=== PATIENT | female | born 1985 | race Caucasian/White ===

== ENCOUNTER 2019-08-17 20:20 | Day surgery (SDC) | payer OTHER ==
[2019-08-17] MEDS ORDERED: Ketorolac 30 MG/ML SDV IVPUSH ONE (20:35)
[2019-08-17] MEDS ORDERED: Sodium Chloride 0.9% 1,000 ML IV ONE (20:35)
[2019-08-17] MEDS ORDERED: Morphine 2 MG/ML Syringe IVPUSH ONE (20:39)
[2019-08-17] MEDS ORDERED: Ondansetron 4 MG/2 ML SDV IVPUSH ONE (20:51)
--- NOTE | 2019-08-17 20:51 | EDM.PDOC ---
<AnastasiyaCherelle - Last Filed: 08/18/19 02:36> ED HPI GENERAL MEDICAL PROBLEM - General Chief Complaint: Abdominal Pain Stated Complaint: RT ABD PAIN Time Seen by Provider: 08/17/19 20:22 - Related Data Allergies Allergy/AdvReac Type Severity Reaction Status Date / Time prochlorperazine Allergy Severe Other Verified 08/18/19 01:43 [From Compazine] Sulfa (Sulfonamide Allergy Rash Verified 08/18/19 01:43 Antibiotics) sulfamethoxazole Allergy Rash Verified 08/18/19 01:43 [From Bactrim] trimethoprim [From Bactrim] Allergy Rash Verified 08/18/19 01:43 Home Meds: Home Meds Cetirizine [ZyrTEC] 1 dose PO DAILY 08/17/19 [History] ED ROS GENERAL - Review of Systems Review Of Systems: See Below (see dictation) ED EXAM, GI/ABD - Physical Exam Exam: See Below (see dictation) Course - Vital Signs Text/Narrative:: Pt signed out to myself from Skylar Ortiz NP pending CT. CT demonstrating acute appendicitis. Dr. Beckford, surgeon, contacted and will admit. He is in the ED seeing patient. Last Recorded V/S: Last Vital Signs Temp 98.2 F 08/18/19 09:00 Pulse 71 08/18/19 09:00 Resp 14 08/18/19 09:00 BP 105/74 08/18/19 09:00 Pulse Ox 94 L 08/18/19 09:00 - Orders/Labs/Meds Labs: Laboratory Tests 08/17/19 08/17/19 08/17/19 Range/Units 20:34 20:34 20:55 WBC 9.45 (4.0-11.0) K/uL RBC 4.71 (4.30-5.90) M/uL Hgb 14.7 (12.0-16.0) g/dL Hct 42.5 (36.0-46.0) % MCV 90.2 (80.0-98.0) fL MCH 31.2 (27.0-32.0) pg MCHC 34.6 (31.0-37.0) g/dL RDW Std Deviation 42.0 (28.0-62.0) fl RDW Coeff of Kathi 13 (11.0-15.0) % Plt Count 187 (150-400) K/uL MPV 10.60 (7.40-12.00) fL Neut % (Auto) 67.2 (48.0-80.0) % Lymph % (Auto) 19.9 (16.0-40.0) % George % (Auto) 9.2 (0.0-15.0) % Eos % (Auto) 3.5 (0.0-7.0) % Baso % (Auto) 0.2 (0.0-1.5) % Neut # (Auto) 6.4 H (1.4-5.7) K/uL Lymph # (Auto) 1.9 (0.6-2.4) K/uL George # (Auto) 0.9 H (0.0-0.8) K/uL Eos # (Auto) 0.3 (0.0-0.7) K/uL Baso # (Auto) 0.0 (0.0-0.1) K/uL Nucleated RBC % 0.0 /100WBC Nucleated RBCs # 0 K/uL Sodium (136-145) mmol/L Potassium (3.5-5.1) mmol/L Chloride (98-107) mmol/L Carbon Dioxide (21.0-32.0) mmol/L BUN (7.0-18.0) mg/dL Creatinine (0.6-1.0) mg/dL Est Cr Clr Drug Dosing mL/min Estimated GFR (MDRD) ml/min Glucose (74-106) mg/dL Calcium (8.5-10.1) mg/dL Total Bilirubin (0.2-1.0) mg/dL AST (15-37) IU/L ALT (14-63) IU/L Alkaline Phosphatase (46-116) U/L Total Protein (6.4-8.2) g/dL Albumin (3.4-5.0) g/dL Globulin (2.6-4.0) g/dL Albumin/Globulin Ratio (0.9-1.6) Urine Color YELLOW Urine Appearance CLEAR Urine pH 5.5 (5.0-8.0) Ur Specific Yantis <= 1.005 (1.001-1.035) Urine Protein NEGATIVE (NEGATIVE) mg/dL Urine Glucose (UA) NEGATIVE (NEGATIVE) mg/dL Urine Ketones NEGATIVE (NEGATIVE) mg/dL Urine Occult Blood NEGATIVE (NEGATIVE) Urine Nitrite NEGATIVE (NEGATIVE) Urine Bilirubin NEGATIVE (NEGATIVE) Urine Urobilinogen 0.2 (<2.0) EU/dL Ur Leukocyte Esterase TRACE H (NEGATIVE) Urine RBC 0-1 (0-2/HPF) Urine WBC 0-3 (0-5/HPF) Ur Epithelial Cells FEW (NONE-FEW) Urine Bacteria 1+ H (NEGATIVE) Urine HCG, Qual NEGATIVE (NEGATIVE) 08/17/19 Range/Units 20:55 WBC (4.0-11.0) K/uL RBC (4.30-5.90) M/uL Hgb (12.0-16.0) g/dL Hct (36.0-46.0) % MCV (80.0-98.0) fL MCH (27.0-32.0) pg MCHC (31.0-37.0) g/dL RDW Std Deviation (28.0-62.0) fl RDW Coeff of Kathi (11.0-15.0) % Plt Count (150-400) K/uL MPV (7.40-12.00) fL Neut % (Auto) (48.0-80.0) % Lymph % (Auto) (16.0-40.0) % George % (Auto) (0.0-15.0) % Eos % (Auto) (0.0-7.0) % Baso % (Auto) (0.0-1.5) % Neut # (Auto) (1.4-5.7) K/uL Lymph # (Auto) (0.6-2.4) K/uL George # (Auto) (0.0-0.8) K/uL Eos # (Auto) (0.0-0.7) K/uL Baso # (Auto) (0.0-0.1) K/uL Nucleated RBC % /100WBC Nucleated RBCs # K/uL Sodium 142 (136-145) mmol/L Potassium 3.5 (3.5-5.1) mmol/L Chloride 105 (98-107) mmol/L Carbon Dioxide 25.0 (21.0-32.0) mmol/L BUN 12 (7.0-18.0) mg/dL Creatinine 1.0 (0.6-1.0) mg/dL Est Cr Clr Drug Dosing 77.08 mL/min Estimated GFR (MDRD) > 60.0 ml/min Glucose 125 H (74-106) mg/dL Calcium 8.9 (8.5-10.1) mg/dL Total Bilirubin 0.6 (0.2-1.0) mg/dL AST 12 L (15-37) IU/L ALT 20 (14-63) IU/L Alkaline Phosphatase 72 (46-116) U/L Total Protein 7.4 (6.4-8.2) g/dL Albumin 3.9 (3.4-5.0) g/dL Globulin 3.5 (2.6-4.0) g/dL Albumin/Globulin Ratio 1.1 (0.9-1.6) Urine Color Urine Appearance Urine pH (5.0-8.0) Ur Specific Yantis (1.001-1.035) Urine Protein (NEGATIVE) mg/dL Urine Glucose (UA) (NEGATIVE) mg/dL Urine Ketones (NEGATIVE) mg/dL Urine Occult Blood (NEGATIVE) Urine Nitrite (NEGATIVE) Urine Bilirubin (NEGATIVE) Urine Urobilinogen (<2.0) EU/dL Ur Leukocyte Esterase (NEGATIVE) Urine RBC (0-2/HPF) Urine WBC (0-5/HPF) Ur Epithelial Cells (NONE-FEW) Urine Bacteria (NEGATIVE) Urine HCG, Qual (NEGATIVE) Meds: Medications Discontinued Medications Generic Name Dose Route Start Last Admin Trade Name Simonq PRN Reason Stop Dose Admin Bupivacaine HCl Confirm 08/17/19 23:52 Marcaine 0.5% Administered 08/17/19 23:53 Dose 30 ml .ROUTE .STK-MED ONE Cefoxitin Sodium Confirm 08/17/19 23:40 Mefoxin Administered 08/17/19 23:41 Dose 1 gm .ROUTE .STK-MED ONE Cefoxitin Sodium Confirm 08/17/19 23:40 Mefoxin Administered 08/17/19 23:41 Dose 1 gm .ROUTE .STK-MED ONE Dexamethasone Confirm 08/17/19 23:28 Dexamethasone Administered 08/17/19 23:29 Dose 20 mg .ROUTE .STK-MED ONE Fentanyl Confirm 08/17/19 23:28 Sublimaze Administered 08/17/19 23:29 Dose 250 mcg .ROUTE .STK-MED ONE Fentanyl 50 mcg 08/18/19 00:36 Sublimaze IVPUSH 08/19/19 00:37 Q5M PRN Pain (severe 7-10) Glycopyrrolate Confirm 08/18/19 00:42 Robinul Administered 08/18/19 00:43 Dose 0.4 mg .ROUTE .STK-MED ONE Glycopyrrolate Confirm 08/18/19 00:43 Robinul Administered 08/18/19 00:44 Dose 0.2 mg .ROUTE .STK-MED ONE Sodium Chloride 1,000 mls @ 999 mls/hr 08/17/19 20:35 08/17/19 21:01 Normal Saline IV 08/17/19 21:35 999 mls/hr STAT ONE Administration Cefoxitin Sodium 2 gm/ Premix 50 mls @ 100 mls/hr 08/17/19 23:18 08/17/19 23: 24 IV 08/17/19 23:47 100 mls/hr ONETIME ONE Administration Lactated Ringer's 1,000 mls @ 125 mls/hr 08/17/19 23:30 08/17/19 23:23 Ringers, Lactated IV 125 mls/hr ASDIRECTED ANASTACIO Administration Lactated Ringer's 1,000 mls @ 125 mls/hr 08/17/19 23:30 Ringers, Lactated IV ASDIRECTED ANASTACIO Sodium Chloride Confirm 08/17/19 23:40 Normal Saline Administered 08/17/19 23:41 Dose 20 mls @ as directed .ROUTE .STK-MED ONE Lactated Ringer's 1,000 mls @ 125 mls/hr 08/18/19 01:30 08/18/19 03:22 Ringers, Lactated IV 125 mls/hr ASDIRECTED ANASTACIO Administration Iopamidol 100 ml 08/17/19 21:59 08/17/19 22:00 Isovue Multipack-370 (76%) IVPUSH 08/17/19 22:00 100 ml ONETIME ONE Administration Ketorolac Tromethamine 30 mg 08/17/19 20:35 08/18/19 02:25 Toradol IVPUSH 08/17/19 20:36 Not Given ONETIME ONE Ketorolac Tromethamine Confirm 08/18/19 00:50 Toradol Administered 08/18/19 00:51 Dose 30 mg .ROUTE .STK-MED ONE Lidocaine Confirm 08/17/19 23:28 Xylocaine-Mpf 2% Administered 08/17/19 23:29 Dose 5 ml .ROUTE .STK-MED ONE Meperidine HCl 12.5 mg 08/18/19 00:36 08/18/19 02:23 Demerol IVPUSH 08/18/19 00:37 Not Given ONETIME ONE Midazolam HCl Confirm 08/17/19 23:29 Versed 1 Mg/Ml Administered 08/17/19 23:30 Dose 2 mg .ROUTE .STK-MED ONE Morphine Sulfate 2 mg 08/17/19 20:39 08/17/19 21:00 Morphine IVPUSH 08/17/19 20:40 2 mg ONETIME ONE Administration Neostigmine Methylsulfate Confirm 08/18/19 00:42 Neostigmine Administered 08/18/19 00:43 Dose 5 mg .ROUTE .STK-MED ONE Ondansetron HCl 4 mg 08/17/19 20:51 08/17/19 20:59 Zofran IVPUSH 08/17/19 20:52 4 mg ONETIME ONE Administration Ondansetron HCl Confirm 08/17/19 20:52 08/17/19 22:45 Zofran Administered 08/17/19 20:53 Not Given Dose 4 mg .ROUTE .STK-MED ONE Ondansetron HCl Confirm 08/17/19 23:28 Zofran Administered 08/17/19 23:29 Dose 4 mg .ROUTE .STK-MED ONE Ondansetron HCl 4 mg 08/18/19 01:18 Zofran IVPUSH Q8H PRN Nausea/Vomiting Oxycodone/Acetaminophen 1 tab 08/18/19 01:18 08/18/19 08:44 Percocet 325-10 Mg PO 1 tab Q6H PRN Administration Pain Propofol Confirm 08/17/19 23:28 Diprivan 20 Ml Administered 08/17/19 23:29 Dose 200 mg .ROUTE .STK-MED ONE Propofol Confirm 08/18/19 00:08 Diprivan 20 Ml Administered 08/18/19 00:09 Dose 200 mg .ROUTE .STK-MED ONE Rocuronium [place] Confirm 08/17/19 23:28 Zemuron Administered 08/17/19 23:29 Dose 100 mg .ROUTE .STK-MED ONE Scopolamine Confirm 08/17/19 23:57 Transderm-Scop Administered 08/17/19 23:58 Dose 1.5 mg .ROUTE .STK-MED ONE Succinylcholine Chloride Confirm 08/17/19 23:28 Succinylcholine Chloride Administered 08/17/19 23:29 Dose 200 mg .ROUTE .STK-MED ONE Departure - Departure Time of Disposition: 23:09 Disposition: Admitted As Inpatient 65 Condition: Good Clinical Impression: Acute appendicitis Qualifiers: Acute appendicitis type: with localized peritonitis Appendicitis gangrene presence: without gangrene Appendicitis perforation presence: without perforation Appendicitis abscess presence: without abscess Qualified Code(s): K35.30 - Acute appendicitis with localized peritonitis, without perforation or gangrene - Discharge Information Sepsis Event Note - Focused Exam Date Exam was Performed: 08/18/19 Time Exam was Performed: 02:36 <Fco Ortiz E - Last Filed: 08/19/19 10:11> ED HPI GENERAL MEDICAL PROBLEM - General Source of Information: Reports: Patient History Limitations: Reports: No Limitations - History of Present Illness INITIAL COMMENTS - FREE TEXT/NARRATIVE: HISTORY AND PHYSICAL: History of present illness: Patient is a 33-year-old female who presents to the emergency room today with complaints of right lower quadrant pain. States the pain started yesterday afternoon and was associated with some dull back pain, diarrhea and nausea. She states over the past 24 hours the right lower quadrant pain has progressively gotten worse. Patient denies any fever, chills, headache, change in vision, syncope or near syncope. Denies any chest pain, neck pain, shortness of breath or cough. Denies any vomiting, constipation or dysuria. Denies any vaginal bleeding, discharge or concerns of STDs. Has not noted any blood in urine or stool. Patient has been eating and drinking appropriately. Review of systems: As per history of present illness and below otherwise all systems reviewed and negative. Past medical history: As per history of present illness and as reviewed below otherwise noncontributory. Surgical history: As per history of present illness and as reviewed below otherwise noncontributory. Social history: See social history for further information Family history: As per history of present illness and as reviewed below otherwise noncontributory. Physical exam: General: Well-developed and well-nourished 33-year-old female. Alert and oriented. HEENT: Atraumatic, normocephalic, pupils equal and reactive bilaterally, negative for conjunctival pallor or scleral icterus, mucous membranes moist, TMs normal bilaterally, throat clear, neck supple, nontender, trachea midline. No drooling or trismus noted. No meningeal signs. No hot potato voice noted. Lungs: Clear to auscultation, breath sounds equal bilaterally, chest nontender. Heart: S1S2, regular rate and rhythm without overt murmur Abdomen: Soft, nondistended, right lower quadrant and rebound tenderness. Negative for masses or hepatosplenomegaly. Negative for costovertebral tenderness. Pelvis is stable and nontender. Skin: Intact, warm, dry. No lesions or rashes noted. Extremities: Atraumatic, moves all extremities per self without difficulty or deficits, negative for cords or calf pain. Neurovascular unremarkable. Neuro: Awake, alert, oriented. Cranial nerves II through XII unremarkable. Cerebellum unremarkable. Motor and sensory unremarkable throughout. Exam nonfocal. Notes: CT scan is pending at this time; Dr Kaye will follow the result on this and manage/disposition patient appropriately. Diagnostics: CBC, CMP, UA, HCGU, CT abd/pelvis Therapeutics: IV fluids, Zofran, Morphine Impression: Appendicitis Definitive disposition and diagnosis as appropriate pending reevaluation and review of above. RLQ Pain Score (Numeric/FACES): 7 Past Medical History HEENT History: Reports: None Cardiovascular History: Reports: None Respiratory History: Reports: None Gastrointestinal History: Reports: None Genitourinary History: Reports: None DRUG AND ALCOHOL TREATMENT SPECIALIST History: Reports: Other (See Below) Other DRUG AND ALCOHOL TREATMENT SPECIALIST History: Ovarian cysts Musculoskeletal History: Reports: None Neurological History: Reports: None Psychiatric History: Reports: None Endocrine/Metabolic History: Reports: None Hematologic History: Reports: None Immunologic History: Reports: None Oncologic (Cancer) History: Reports: None Dermatologic History: Reports: None - Infectious Disease History Infectious Disease History: Reports: Chicken Pox - Past Surgical History Head Surgeries/Procedures: Reports: None HEENT Surgical History: Reports: Oral Surgery, Tonsillectomy Cardiovascular Surgical History: Reports: None Respiratory Surgical History: Reports: None GI Surgical History: Reports: None Female Surgical History: Reports: None Endocrine Surgical History: Reports: None Neurological Surgical History: Reports: None Musculoskeletal Surgical History: Reports: None Oncologic Surgical History: Reports: None Dermatological Surgical History: Reports: None Social & Family History - Family History Family Medical History: Noncontributory - Tobacco Use Smoking Status *Q: Never Smoker Second Hand Smoke Exposure: No - Caffeine Use Caffeine Use: Reports: Tea - Recreational Drug Use Recreational Drug Use: No Course - Orders/Labs/Meds Labs: Laboratory Tests 08/17/19 08/17/19 08/17/19 Range/Units 20:34 20:34 20:55 WBC 9.45 (4.0-11.0) K/uL RBC 4.71 (4.30-5.90) M/uL Hgb 14.7 (12.0-16.0) g/dL Hct 42.5 (36.0-46.0) % MCV 90.2 (80.0-98.0) fL MCH 31.2 (27.0-32.0) pg MCHC 34.6 (31.0-37.0) g/dL RDW Std Deviation 42.0 (28.0-62.0) fl RDW Coeff of Kathi 13 (11.0-15.0) % Plt Count 187 (150-400) K/uL MPV 10.60 (7.40-12.00) fL Neut % (Auto) 67.2 (48.0-80.0) % Lymph % (Auto) 19.9 (16.0-40.0) % George % (Auto) 9.2 (0.0-15.0) % Eos % (Auto) 3.5 (0.0-7.0) % Baso % (Auto) 0.2 (0.0-1.5) % Neut # (Auto) 6.4 H (1.4-5.7) K/uL Lymph # (Auto) 1.9 (0.6-2.4) K/uL George # (Auto) 0.9 H (0.0-0.8) K/uL Eos # (Auto) 0.3 (0.0-0.7) K/uL Baso # (Auto) 0.0 (0.0-0.1) K/uL Nucleated RBC % 0.0 /100WBC Nucleated RBCs # 0 K/uL Sodium (136-145) mmol/L Potassium (3.5-5.1) mmol/L Chloride (98-107) mmol/L Carbon Dioxide (21.0-32.0) mmol/L BUN (7.0-18.0) mg/dL Creatinine (0.6-1.0) mg/dL Est Cr Clr Drug Dosing mL/min Estimated GFR (MDRD) ml/min Glucose (74-106) mg/dL Calcium (8.5-10.1) mg/dL Total Bilirubin (0.2-1.0) mg/dL AST (15-37) IU/L ALT (14-63) IU/L Alkaline Phosphatase (46-116) U/L Total Protein (6.4-8.2) g/dL Albumin (3.4-5.0) g/dL Globulin (2.6-4.0) g/dL Albumin/Globulin Ratio (0.9-1.6) Urine Color YELLOW Urine Appearance CLEAR Urine pH 5.5 (5.0-8.0) Ur Specific Yantis <= 1.005 (1.001-1.035) Urine Protein NEGATIVE (NEGATIVE) mg/dL Urine Glucose (UA) NEGATIVE (NEGATIVE) mg/dL Urine Ketones NEGATIVE (NEGATIVE) mg/dL Urine Occult Blood NEGATIVE (NEGATIVE) Urine Nitrite NEGATIVE (NEGATIVE) Urine Bilirubin NEGATIVE (NEGATIVE) Urine Urobilinogen 0.2 (<2.0) EU/dL Ur Leukocyte Esterase TRACE H (NEGATIVE) Urine RBC 0-1 (0-2/HPF) Urine WBC 0-3 (0-5/HPF) Ur Epithelial Cells FEW (NONE-FEW) Urine Bacteria 1+ H (NEGATIVE) Urine HCG, Qual NEGATIVE (NEGATIVE) 08/17/19 Range/Units 20:55 WBC (4.0-11.0) K/uL RBC (4.30-5.90) M/uL Hgb (12.0-16.0) g/dL Hct (36.0-46.0) % MCV (80.0-98.0) fL MCH (27.0-32.0) pg MCHC (31.0-37.0) g/dL RDW Std Deviation (28.0-62.0) fl RDW Coeff of Kathi (11.0-15.0) % Plt Count (150-400) K/uL MPV (7.40-12.00) fL Neut % (Auto) (48.0-80.0) % Lymph % (Auto) (16.0-40.0) % George % (Auto) (0.0-15.0) % Eos % (Auto) (0.0-7.0) % Baso % (Auto) (0.0-1.5) % Neut # (Auto) (1.4-5.7) K/uL Lymph # (Auto) (0.6-2.4) K/uL George # (Auto) (0.0-0.8) K/uL Eos # (Auto) (0.0-0.7) K/uL Baso # (Auto) (0.0-0.1) K/uL Nucleated RBC % /100WBC Nucleated RBCs # K/uL Sodium 142 (136-145) mmol/L Potassium 3.5 (3.5-5.1) mmol/L Chloride 105 (98-107) mmol/L Carbon Dioxide 25.0 (21.0-32.0) mmol/L BUN 12 (7.0-18.0) mg/dL Creatinine 1.0 (0.6-1.0) mg/dL Est Cr Clr Drug Dosing 77.08 mL/min Estimated GFR (MDRD) > 60.0 ml/min Glucose 125 H (74-106) mg/dL Calcium 8.9 (8.5-10.1) mg/dL Total Bilirubin 0.6 (0.2-1.0) mg/dL AST 12 L (15-37) IU/L ALT 20 (14-63) IU/L Alkaline Phosphatase 72 (46-116) U/L Total Protein 7.4 (6.4-8.2) g/dL Albumin 3.9 (3.4-5.0) g/dL Globulin 3.5 (2.6-4.0) g/dL Albumin/Globulin Ratio 1.1 (0.9-1.6) Urine Color Urine Appearance Urine pH (5.0-8.0) Ur Specific Yantis (1.001-1.035) Urine Protein (NEGATIVE) mg/dL Urine Glucose (UA) (NEGATIVE) mg/dL Urine Ketones (NEGATIVE) mg/dL Urine Occult Blood (NEGATIVE) Urine Nitrite (NEGATIVE) Urine Bilirubin (NEGATIVE) Urine Urobilinogen (<2.0) EU/dL Ur Leukocyte Esterase (NEGATIVE) Urine RBC (0-2/HPF) Urine WBC (0-5/HPF) Ur Epithelial Cells (NONE-FEW) Urine Bacteria (NEGATIVE) Urine HCG, Qual (NEGATIVE) Sepsis Event Note - Evaluation Sepsis Screening Result: No Definite Risk - Focused Exam Date Exam was Performed: 08/19/19 Time Exam was Performed: 10:09
[2019-08-17] MEDS ORDERED: Ondansetron 4 MG/2 ML SDV ONE ×2 (20:52→23:28)
[2019-08-17 21:34] LABS: BLOOD UREA NITROGEN,BUN 12 mg/dL (7.0-18.0); CHLORIDE,CL 105 mmol/L (98-107); GLUCOSE RANDOM 125 mg/dL (74-106); POTASSIUM,K 3.5 mmol/L (3.5-5.1); SODIUM,NA 142 mmol/L (136-145)
[2019-08-17] MEDS ORDERED: Iopamidol 755 MG/ML 200 ML Multipack Bottle IVPUSH ONE (21:59)
--- NOTE | 2019-08-17 22:23 | CT ---
Indication: Right lower quadrant abdominal pain Technique: Contrast enhanced axial CT imaging through the abdomen and pelvis. 100 mL Isovue 370 contrast agent was administered intravenously. Sagittal and coronal reconstructions are provided. Comparison: None Findings: There is diffuse appendiceal distention with wall thickening and periappendiceal inflammatory stranding, consistent with acute appendicitis. There is no free intraperitoneal air to indicate perforation. There is no abdominal abscess. A few prominent right lower quadrant mesenteric lymph nodes are presumably reactive. The stomach and small bowel are unremarkable. There is no colonic wall thickening. Mild diverticulosis is noted in the sigmoid colon. There is no significant abnormality of the liver, gallbladder, spleen, pancreas, and adrenal glands. Small parapelvic renal cysts are noted bilaterally. There is no hydronephrosis. The portal vein is patent. There is normal caliber of the abdominal aorta. The right ovary is mildly enlarged, measuring up to 4.4 cm. The urinary bladder, uterus, and left ovary are unremarkable. The visualized osseous structures are unremarkable. The included lung bases are clear. Impression: 1. Acute appendicitis without evidence of perforation or abscess. 2. Diverticulosis of the sigmoid colon without evidence of diverticulitis. 3. Mildly enlarged right ovary. Correlate with pelvic ultrasound. Please note that all CT scans at this facility use dose modulation, iterative reconstruction, and/or weight-based dosing when appropriate to reduce radiation dose to as low as reasonably achievable. Dictated by Mira Galvan MD @ Aug 17 2019 10:16PM Signed by Dr. Mira Galvan @ Aug 17 2019 10:23PM
[2019-08-17] MEDS ORDERED: cefOXitin 2 GM in Premix Bag 1 BAG IV ONE (23:18)
[2019-08-17] MEDS ORDERED: Dexamethasone 4 MG/ML 5 ML MDV ONE (23:28)
[2019-08-17] MEDS ORDERED: fentaNYL 250 MCG/5 ML SDV ONE (23:28)
[2019-08-17] MEDS ORDERED: Lidocaine 2% 5 ML SDV ONE (23:28)
[2019-08-17] MEDS ORDERED: Propofol 200 MG/20 ML SDV ONE (23:28)
[2019-08-17] MEDS ORDERED: Rocuronium 100 MG/10 ML Syringe ONE (23:28)
[2019-08-17] MEDS ORDERED: Midazolam 1 MG/ML 2 ML SDV ONE (23:29)
--- NOTE | 2019-08-17 23:29 | PCM.SN ---
- Free Text/Narrative Note: pt seen, chart reviewed; acute appendicitis, to or for timely surgery; rb dw pt re bleeding/infection/damage to nearby organs; pt concur, and proceed; ivf/abx to OR. [id number]
[2019-08-17] MEDS ORDERED: Lactated Ringers 1,000 ML IV SCH ×2 (23:30)
[2019-08-17] MEDS ORDERED: Sodium Chloride 0.9% 20 ML ONE (23:40)
[2019-08-17] MEDS ORDERED: cefOXitin 1 GM Vial ONE ×2 (23:40)
[2019-08-17] MEDS ORDERED: Bupivacaine 0.5% 30 ML SDV ONE (23:52)
[2019-08-17] MEDS ORDERED: Scopolamine 1.5 MG Transdermal Patch ONE (23:57)
[2019-08-18] MEDS ORDERED: Propofol 200 MG/20 ML SDV ONE (00:08)
[2019-08-18] MEDS ORDERED: Meperidine PF 25 MG/ML Syringe IVPUSH ONE (00:36)
[2019-08-18] MEDS ORDERED: fentaNYL 100 MCG/2 ML SDV IVPUSH PRN (00:36)
--- NOTE | 2019-08-18 00:36 | PCM.PREANE ---
Preanesthetic Assessment - Procedure Proposed Procedure: laproscopic appendectomy - Anesthesia/Transfusion/Family Hx Anesthesia History: Prior Anesthesia Without Reaction Family History of Anesthesia Reaction: No Transfusion History: No Prior Transfusion(s) - Review of Systems General: No Symptoms Pulmonary: No Symptoms Cardiovascular: No Symptoms Gastrointestinal: Abdominal Pain Neurological: No Symptoms Other: Reports: None - Physical Assessment NPO Status Date: 08/17/19 NPO Status Time: 19:30 Vital Signs: Last Vital Signs Temp 36.4 C 08/17/19 22:41 Pulse 76 08/17/19 22:41 Resp 18 08/17/19 22:41 BP 141/92 H 08/17/19 22:41 Pulse Ox 100 08/17/19 22:41 Height: 5 ft 7 in Weight: 74.843 kg ASA Class: 1E Mental Status: Alert & Oriented x3 Airway Class: Mallampati = 1 Dentition: Reports: Normal Dentition Thyro-Mental Finger Breadths: 3 Mouth Opening Finger Breadths: 3 ROM/Head Extension: Full Lungs: Clear to Auscultation, Normal Respiratory Effort Cardiovascular: Regular Rate, Regular Rhythm - Lab Values: Laboratory Last Values WBC 9.45 K/uL (4.0-11.0) 08/17/19 20:55 RBC 4.71 M/uL (4.30-5.90) 08/17/19 20:55 Hgb 14.7 g/dL (12.0-16.0) 08/17/19 20:55 Hct 42.5 % (36.0-46.0) 08/17/19 20:55 MCV 90.2 fL (80.0-98.0) 08/17/19 20:55 MCH 31.2 pg (27.0-32.0) 08/17/19 20:55 MCHC 34.6 g/dL (31.0-37.0) 08/17/19 20:55 RDW Std Deviation 42.0 fl (28.0-62.0) 08/17/19 20:55 RDW Coeff of Kathi 13 % (11.0-15.0) 08/17/19 20:55 Plt Count 187 K/uL (150-400) 08/17/19 20:55 MPV 10.60 fL (7.40-12.00) 08/17/19 20:55 Neut % (Auto) 67.2 % (48.0-80.0) 08/17/19 20:55 Lymph % (Auto) 19.9 % (16.0-40.0) 08/17/19 20:55 [place] % (Auto) 9.2 % (0.0-15.0) 08/17/19 20:55 Eos % (Auto) 3.5 % (0.0-7.0) 08/17/19 20:55 Baso % (Auto) 0.2 % (0.0-1.5) 08/17/19 20:55 Neut # (Auto) 6.4 K/uL (1.4-5.7) H 08/17/19 20:55 Lymph # (Auto) 1.9 K/uL (0.6-2.4) 08/17/19 20:55 [place] # (Auto) 0.9 K/uL (0.0-0.8) H 08/17/19 20:55 Eos # (Auto) 0.3 K/uL (0.0-0.7) 08/17/19 20:55 Baso # (Auto) 0.0 K/uL (0.0-0.1) 08/17/19 20:55 Nucleated RBC % 0.0 /100WBC 08/17/19 20:55 Nucleated RBCs # 0 K/uL 08/17/19 20:55 Sodium 142 mmol/L (136-145) 08/17/19 20:55 Potassium 3.5 mmol/L (3.5-5.1) 08/17/19 20:55 Chloride 105 mmol/L (98-107) 08/17/19 20:55 Carbon Dioxide 25.0 mmol/L (21.0-32.0) 08/17/19 20:55 BUN 12 mg/dL (7.0-18.0) 08/17/19 20:55 Creatinine 1.0 mg/dL (0.6-1.0) 08/17/19 20:55 Est Cr Clr Drug Dosing 77.08 mL/min 08/17/19 20:55 Estimated GFR (MDRD) > 60.0 ml/min 08/17/19 20:55 Glucose 125 mg/dL (74-106) H 08/17/19 20:55 Calcium 8.9 mg/dL (8.5-10.1) 08/17/19 20:55 Total Bilirubin 0.6 mg/dL (0.2-1.0) 08/17/19 20:55 AST 12 IU/L (15-37) L 08/17/19 20:55 ALT 20 IU/L (14-63) 08/17/19 20:55 Alkaline Phosphatase 72 U/L (46-116) 08/17/19 20:55 Total Protein 7.4 g/dL (6.4-8.2) 08/17/19 20:55 Albumin 3.9 g/dL (3.4-5.0) 08/17/19 20:55 Globulin 3.5 g/dL (2.6-4.0) 08/17/19 20:55 Albumin/Globulin Ratio 1.1 (0.9-1.6) 08/17/19 20:55 Urine Color YELLOW 08/17/19 20:34 Urine Appearance CLEAR 08/17/19 20:34 Urine pH 5.5 (5.0-8.0) 08/17/19 20:34 Ur Specific [place] <= 1.005 (1.001-1.035) 08/17/19 20:34 Urine Protein NEGATIVE mg/dL (NEGATIVE) 08/17/19 20:34 Urine Glucose (UA) NEGATIVE mg/dL (NEGATIVE) 08/17/19 20:34 Urine Ketones NEGATIVE mg/dL (NEGATIVE) 08/17/19 20:34 Urine Occult Blood NEGATIVE (NEGATIVE) 08/17/19 20:34 Urine Nitrite NEGATIVE (NEGATIVE) 08/17/19 20:34 Urine Bilirubin NEGATIVE (NEGATIVE) 08/17/19 20:34 Urine Urobilinogen 0.2 EU/dL (<2.0) 08/17/19 20:34 Ur Leukocyte Esterase TRACE (NEGATIVE) H 08/17/19 20:34 Urine RBC 0-1 (0-2/HPF) 08/17/19 20:34 Urine WBC 0-3 (0-5/HPF) 08/17/19 20:34 Ur Epithelial Cells FEW (NONE-FEW) 08/17/19 20:34 Urine Bacteria 1+ (NEGATIVE) H 08/17/19 20:34 Urine HCG, Qual NEGATIVE (NEGATIVE) 08/17/19 20:34 - Allergies Allergies/Adverse Reactions: Allergies Allergy/AdvReac Type Severity Reaction Status Date / Time prochlorperazine Allergy Severe Other Verified 08/17/19 20:31 [From Compazine] Sulfa (Sulfonamide Allergy Rash Verified 08/17/19 20:31 Antibiotics) sulfamethoxazole Allergy Rash Verified 08/17/19 20:31 [From Bactrim] trimethoprim [From Bactrim] Allergy Rash Verified 08/17/19 20:31 - Blood Product(s) Available: None - Acknowledgements Anesthesia Type Planned: General Anesthesia (RSI) Pt an Appropriate Candidate for the Planned Anesthesia: Yes Alternatives and Risks of Anesthesia Discussed w Pt/Guardian: Yes Pt/Guardian Understands and Agrees with Anesthesia Plan: Yes PreAnesthesia Questionnaire HEENT History: Reports: None Cardiovascular History: Reports: None Respiratory History: Reports: None Gastrointestinal History: Reports: None Genitourinary History: Reports: None 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 (See Below) Other OB/BYN History: Ovarian cysts Musculoskeletal History: Reports: None Neurological History: Reports: None Psychiatric History: Reports: None Endocrine/Metabolic History: Reports: None Hematologic History: Reports: None Immunologic History: Reports: None Oncologic (Cancer) History: Reports: None Dermatologic History: Reports: None - Infectious Disease History Infectious Disease History: Reports: Chicken Pox - Past Surgical History Head Surgeries/Procedures: Reports: None HEENT Surgical History: Reports: Oral Surgery, Tonsillectomy Cardiovascular Surgical History: Reports: None Respiratory Surgical History: Reports: None GI Surgical History: Reports: None Female Surgical History: Reports: None Endocrine Surgical History: Reports: None Neurological Surgical History: Reports: None Musculoskeletal Surgical History: Reports: None Oncologic Surgical History: Reports: None Dermatological Surgical History: Reports: None - SUBSTANCE USE Smoking Status *Q: Never Smoker Second Hand Smoke Exposure: No Recreational Drug Use History: No - HOME MEDS Home Medications: Home Meds Cetirizine [ZyrTEC] 1 dose PO DAILY 08/17/19 [History] - CURRENT (IN HOUSE) MEDS Current Meds: Current Medications Lactated Ringer's (Ringers, Lactated) 1,000 mls @ 125 mls/hr IV ASDIRECTED ANASTACIO Last Admin: 08/17/19 23:23 Dose: 125 mls/hr Lactated Ringer's (Ringers, Lactated) 1,000 mls @ 125 mls/hr IV ASDIRECTED ANASTACIO Discontinued Medications Bupivacaine HCl (Marcaine 0.5%) Confirm Administered Dose 30 ml .ROUTE .STK-MED ONE Stop: 08/17/19 23:53 Cefoxitin Sodium (Mefoxin) Confirm Administered Dose 1 gm .ROUTE .STK-MED ONE Stop: 08/17/19 23:41 Cefoxitin Sodium (Mefoxin) Confirm Administered Dose 1 gm .ROUTE .STK-MED ONE Stop: 08/17/19 23:41 Dexamethasone (Dexamethasone) Confirm Administered Dose 20 mg .ROUTE .STK-MED ONE Stop: 08/17/19 23:29 Fentanyl (Sublimaze) Confirm Administered Dose 250 mcg .ROUTE .STK-MED ONE Stop: 08/17/19 23:29 Sodium Chloride (Normal Saline) 1,000 mls @ 999 mls/hr IV STAT ONE Stop: 08/17/19 21:35 Last Admin: 08/17/19 21:01 Dose: 999 mls/hr Cefoxitin Sodium 2 gm/ Premix 50 mls @ 100 mls/hr IV ONETIME ONE Stop: 08/17/19 23:47 Last Admin: 08/17/19 23:24 Dose: 100 mls/hr Sodium Chloride (Normal Saline) Confirm Administered Dose 20 mls @ as directed .ROUTE .STK-MED ONE Stop: 08/17/19 23:41 Iopamidol (Isovue Multipack-370 (76%)) 100 ml IVPUSH ONETIME ONE Stop: 08/17/19 22:00 Last Admin: 08/17/19 22:00 Dose: 100 ml Ketorolac Tromethamine (Toradol) 30 mg IVPUSH ONETIME ONE Stop: 08/17/19 20:36 Lidocaine (Xylocaine-Mpf 2%) Confirm Administered Dose 5 ml .ROUTE .STK-MED ONE Stop: 08/17/19 23:29 Midazolam HCl (Versed 1 Mg/Ml) Confirm Administered Dose 2 mg .ROUTE .STK-MED ONE Stop: 08/17/19 23:30 Morphine Sulfate (Morphine) 2 mg IVPUSH ONETIME ONE Stop: 08/17/19 20:40 Last Admin: 08/17/19 21:00 Dose: 2 mg Ondansetron HCl (Zofran) 4 mg IVPUSH ONETIME ONE Stop: 08/17/19 20:52 Last Admin: 08/17/19 20:59 Dose: 4 mg Ondansetron HCl (Zofran) Confirm Administered Dose 4 mg .ROUTE .ST-MED ONE Stop: 08/17/19 20:53 Last Admin: 08/17/19 22:45 Dose: Not Given Ondansetron HCl (Zofran) Confirm Administered Dose 4 mg .ROUTE .STK-MED ONE Stop: 08/17/19 23:29 Propofol (Diprivan 20 Ml) Confirm Administered Dose 200 mg .ROUTE .ST-MED ONE Stop: 08/17/19 23:29 Propofol (Diprivan 20 Ml) Confirm Administered Dose 200 mg .ROUTE .[facility]-MED ONE Stop: 08/18/19 00:09 Rocuronium [place] (Zemuron) Confirm Administered Dose 100 mg .ROUTE .ST-MED ONE Stop: 08/17/19 23:29 Scopolamine (Transderm-Scop) Confirm Administered Dose 1.5 mg .ROUTE .ST-MED ONE Stop: 08/17/19 23:58 Succinylcholine Chloride (Succinylcholine Chloride) Confirm Administered Dose 200 mg .ROUTE .ST-MED ONE Stop: 08/17/19 23:29
[2019-08-18] MEDS ORDERED: Glycopyrrolate 0.2 MG/ML SDV ONE ×2 (00:42→00:43)
[2019-08-18] MEDS ORDERED: Neostigmine Methylsulfate 1 MG/ML 5 ML Syringe ONE (00:42)
[2019-08-18] MEDS ORDERED: Ketorolac 30 MG/ML SDV ONE (00:50)
--- NOTE | 2019-08-18 01:17 | PCM.OPNOTE ---
- General Post-Op/Procedure Note Date of Surgery/Procedure: 08/18/19 Findings: appendix is dilated, hyperemic, w yellow exudate, and severly scarred down with surrounding organs; gross perf is not observed; [id number] Pre Op Diagnosis: acute appendicitis Post-Op Diagnosis: Same Anesthesia Technique: General ET Tube Primary Surgeon: Daniel Beckford Pathology: sent Complications: None Condition: Good
[2019-08-18] MEDS ORDERED: Ondansetron 4 MG/2 ML SDV IVPUSH PRN (01:18)
[2019-08-18] MEDS ORDERED: Acetaminophen/oxyCODONE 325-10 MG Tab PO PRN (01:18)
[2019-08-18] MEDS ORDERED: Lactated Ringers 1,000 ML IV SCH (01:30)
--- NOTE | 2019-08-18 01:34 | PCM.POSTAN ---
POST ANESTHESIA ASSESSMENT - MENTAL STATUS Mental Status: Alert, Oriented - VITAL SIGNS Vital Signs: Last Vital Signs Temp 36 C 08/18/19 01:09 Pulse 82 08/18/19 01:24 Resp 14 08/18/19 01:24 BP 132/93 H 08/18/19 01:24 Pulse Ox 98 08/18/19 01:24 - RESPIRATORY Respiratory Status: Respiratory Rate WNL, Airway Patent, O2 Saturation Stable - CARDIOVASCULAR CV Status: Pulse Rate WNL, Blood Pressure Stable - GASTROINTESTINAL GI Status: No Symptoms - PAIN Pain Score: 0 - POST OP HYDRATION Hydration Status: Adequate & Stable
--- NOTE | 2019-08-18 01:54 | PCM48HPAN ---
Post Anesthesia Note - EVALUATION WITHIN 48HRS OF ANESTHETIC Vital Signs in Normal Range: Yes Patient Participated in Evaluation: Yes Respiratory Function Stable: Yes Airway Patent: Yes Cardiovascular Function Stable: Yes Hydration Status Stable: Yes Pain Control Satisfactory: Yes Nausea and Vomiting Control Satisfactory: Yes Mental Status Recovered: Yes Vital Signs: Last Vital Signs Temp 36.3 C 08/18/19 01:30 Pulse 76 08/18/19 01:30 Resp 16 08/18/19 01:30 BP 122/79 08/18/19 01:30 Pulse Ox 97 08/18/19 01:30
--- NOTE | 2019-08-18 09:36 | CONS ---
DATE OF CONSULTATION: 08/17/2019 DATE OF : 1985 PRIMARY CARE PHYSICIAN: None PCP Consult from the ER provider, Fco Ortiz NP. CONSULTING QUESTION: Acute appendicitis. HISTORY OF PRESENT ILLNESS: The patient is a 33-year-old lady, complaining of 1-1/2-day history of periumbilical pain, subsequently migrated to the right lower quadrant. Denied nausea, fever, trauma, chill. Last meal was 5 hours ago. Emergency room workup has blood work and CT. CT shows acute appendicitis. Surgery was then consulted. PAST MEDICAL HISTORY: Significant for no diabetes, [place], CVA, or hypertension. PAST SURGICAL HISTORY: None. ALLERGIES: Please refer to nursing for details. MEDICATIONS: Please refer to nursing for details. SOCIAL HISTORY: Denied tobacco or alcohol abuse. The patient is a computer science teacher. PHYSICAL EXAMINATION: GENERAL: A very pleasant lady, contrary to most common situation, the patient is smiling and occasionally giggling and laughing. Very, very cooperating with examination. HEENT: Normocephalic, atraumatic. Sclerae anicteric. LUNGS: Clear to auscultation. HEART: Regular rate and rhythm. ABDOMEN: Soft, nondistended. No pulsating tender midline abdominal structure. No surgical scar. Exquisite tenderness at McBurney's point. LABORATORY DATA: White count is 9.45, H and H 15 and 43, and platelet is 187. BUN of 12, creatinine is 1. Total bilirubin is 0.6. AST and ALT of 12 and 20, alk phos 72. UA, no signs or symptoms of urinary infection. A beta-hCG is negative. CAT scan report; dilated appendicitis with thickened wall of the appendix and some reactive lymph node and also diverticulosis in the sigmoid colon. IMPRESSION: Acute appendicitis, already 40 hours. Would benefit from surgical intervention in a timely basis. Risks and benefits discussed with the patient including bleeding, infection, and damage to nearby organs and if perforated, we will put in a drain. The patient concurred to proceed with surgery and start with IV fluid, antibiotic and proposed for laparoscopic, possible open appendectomy. Thank you for the kind referral. YANCY / YUNIOR /[id number]
--- NOTE | 2019-08-18 09:42 | OR ---
SURGEON: Daniel Beckford MD DATE OF PROCEDURE: 08/18/2019 PREOPERATIVE DIAGNOSIS: Acute appendicitis. POSTOPERATIVE DIAGNOSIS: Acute appendicitis. PROCEDURE PERFORMED: Laparoscopic appendectomy. COMPLICATIONS: None. FINDING: Appendix is dilated and with some purulent exudate and also severely interacting with the terminal ileum and the colon, consistent with acute appendicitis. Gross perforation is not observed. The patient has endometriosis as evidenced by the chocolate deposit in the pelvis. And pt has diverticulosis from ct scan. PROCEDURE: The patient was taken to the operating room and placed in the supine position. Following induction of general endotracheal anesthesia, the patient's abdomen was prepped and draped in the sterile fashion. A time-out has been called. The patient was identified. The procedure was identified. The antibiotics were identified. The procedure then proceeded. The abdomen was prepped and draped in a standard fashion. After assessment of appropriate landmarks, a 12 millimeter trocar was inserted supraumbilically using Optiview, and pneumoperitoneum was then achieved. This was followed with placement of 5 millimeter port in the right upper quadrant and another 5 millimeter port infraumbilically. The camera was inserted in the supraumbilical site, and two laparoscopic Thomas retractors were then inserted through the other two sites. Following the cecum, the appendix was located. The appendix was then lifted up, and using a GI stapler, the appendix was amputated at the base. Also using the GI stapler, the mesoappendix was then amputated. The appendix was retrieved by an endoscopic bag and sent for pathologist. This was then followed by re-insertion of the camera to examine the staple line, and hemostasis. The trocars were then removed. The umbilical site was closed with 2-0 Vicryl deep stitch and 4 -0 Vicryl and Dermabond; the other two 5 mm port sites were closed with 4-0 Vicryl and Dermabond. The patient was then awakened, extubated, and transferred to the recovery room in hemodynamically stable condition. Prior to closing, sponge count and instrument count was correct. Dr. Beckford was present throughout the whole procedure. As always, thank you for the kind referral. YANCY / YUNIOR /[id number] BROWN
== END 2019-08-18 12:10 | disposition home or self-care (01) ==
LOC: MW.ED 20:20 → MW.SDS 23:11 → MW.MS 23:43 → MW.SDS 08-18 12:10
PROVIDERS: ATTEND Surgery
DX: K35.80 Unspecified acute appendicitis (principal); Z88.2 Allergy status to sulfonamides; Z88.1 Allergy status to other antibiotic agents; Z88.8 Allergy status to other drugs, medicaments and biological substances
CPT/HCPCS: 44970; 74177; 80053; 81001; 81025; 85025; 87086; A9270; J0330; J0694; J1100; J1885; J2001; J2250; J2270; J2405; J2704; J3010; J3490; J7030; J7120; Q9967; 00840; 51702; 88304; 96361; 96374; 96375; 99285-25; C1776

== ENCOUNTER 2023-03-27 17:46 | Inpatient (IN) | payer BC ==
[2023-03-27] MEDS ORDERED: Carboprost Tromethamine 250 MCG/1 mL Vial IM PRN (18:03)
[2023-03-27] MEDS ORDERED: Tranexamic Acid IN NACL,ISO-OS 1,000 MG in Premix Bag 1 BAG IV PRN ×2 (18:03)
[2023-03-27] MEDS ORDERED: Misoprostol 200 MCG Tab PO PRN (18:03)
[2023-03-27] MEDS ORDERED: Sodium Chloride 0.9% 10 ML Syringe FLUSH PRN (18:03)
[2023-03-27] MEDS ORDERED: Lidocaine 1% 50 ML MDV INJECT PRN (18:03)
[2023-03-27] MEDS ORDERED: Terbutaline 1 MG/ML SDV SUBCUT PRN (18:03)
[2023-03-27] MEDS ORDERED: Water For Irrigation,Sterile 1,000 ML Container IRR PRN (18:03)
[2023-03-27] MEDS ORDERED: Misoprostol 25 MCG (1/4 of 100 MCG) Tab VAG PRN ×2 (18:03)
[2023-03-27] MEDS ORDERED: Sodium Chloride 0.9% 2.5 ML Syringe FLUSH PRN (18:03)
[2023-03-27] MEDS ORDERED: Butorphanol 1 MG/ML SDV IVPUSH PRN (18:03)
[2023-03-27] MEDS ORDERED: Methylergonovine 0.2 MG/1 ML Amp IM PRN (18:03)
[2023-03-27] MEDS ORDERED: Sodium Chloride 0.9% 20 ML SDV IV PRN (18:03)
[2023-03-27] MEDS ORDERED: Oxytocin/0.9 % Sodium Chloride 30 UNIT/500 ML BAG IV SCH ×2 (18:15)
[2023-03-27 19:15] LABS: HEMATOCRIT 36.4 % (36.0-46.0); HEMOGLOBIN 12.3 g/dL (12.0-16.0); MEAN CORPUSCULAR HEMOGLOBIN 30.4 pg (27.0-32.0); MEAN CORPUSCULAR HGB CONC 33.8 g/dL (31.0-37.0); MEAN CORPUSCULAR VOLUME 89.9 fL (80.0-98.0); MEAN PLATELET VOLUME 11.7 fL (7.40-12.00); RED BLOOD CELL COUNT 4.05 M/uL (4.30-5.90); WHITE BLOOD CELL COUNT,WBC 8.15 K/uL (4.0-11.0)
[2023-03-27] MEDS ORDERED: Phenylephrine HCl 0.5 MG/5 ML AMP IVPUSH PRN (19:38)
[2023-03-27] MEDS ORDERED: ePHEDrine 50 MG/ML SDV IVPUSH PRN ×2 (19:38)
[2023-03-27] MEDS ORDERED: Ropivacaine HCl/PF 400 MG in Premix Bag 1 BAG EPIDUR SCH (19:45)
[2023-03-27 19:50] LABS: A/G RATIO 0.7 (0.9-1.6); ALBUMIN 2.9 g/dL (3.4-5.0); BILIRUBIN TOTAL 0.2 mg/dL (0.2-1.0); CALCIUM 8.7 mg/dL (8.5-10.1); CARBON DIOXIDE,CO2 21.9 mmol/L (21.0-32.0); CREATININE 0.9 mg/dL (0.6-1.0); EST CRCL DRUG DOSING (CG) 82.42 mL/min; POTASSIUM,K 3.7 mmol/L (3.5-5.1); PROTEIN TOTAL,TP 6.8 g/dL (6.4-8.2); URIC ACID 5.6 mg/dL (2.6-7.2)
[2023-03-28] MEDS: Nalbuphine 10 MG/0.5 ML Syringe IVPUSH PRN ×2 (17:07→19:37)
[2023-03-29] MEDS: Lactated Ringers 1,000 ML IV SCH ×3 (02:41→16:05)
[2023-03-29] MEDS ORDERED: Acetaminophen 325 MG Tab PO ONE (03:15)
[2023-03-29] MEDS ORDERED: Acetaminophen 500 MG Tab ONE (03:46)
[2023-03-29] MEDS ORDERED: Ondansetron 4 MG/2 ML SDV IVPUSH PRN ×4 (19:13→23:17)
[2023-03-29] MEDS ORDERED: Sodium Chloride 0.9% 20 ML SDV IV PRN (21:20)
[2023-03-29] MEDS ORDERED: Sodium Chloride 0.9% 2.5 ML Syringe FLUSH PRN (21:20)
[2023-03-29] MEDS ORDERED: Citric Acid/Sodium Citrate Solution 30 ML Cup PO ONE (21:20)
[2023-03-29] MEDS ORDERED: Azithromycin 500 MG in Sodium Chloride 0.9% 250 ML IV ONE (21:20)
[2023-03-29] MEDS ORDERED: Sodium Chloride 0.9% 10 ML Syringe FLUSH PRN (21:20)
[2023-03-29] MEDS ORDERED: ceFAZolin 2 GM in Sodium Chloride 0.9% 50 ML IV ONE (21:20)
[2023-03-29] MEDS ORDERED: Azithromycin 500 MG Vial ONE (21:28)
[2023-03-29] MEDS ORDERED: Sodium Chloride 0.9% 250 ML ONE (21:29)
[2023-03-29] MEDS ORDERED: Oxytocin/0.9 % Sodium Chloride 30 UNIT/500 ML BAG IV SCH ×2 (21:30→23:30)
[2023-03-29] MEDS ORDERED: Lactated Ringers 1,000 ML IV SCH ×2 (21:30→23:30)
[2023-03-29] MEDS ORDERED: Dexamethasone 4 MG/ML 5 ML MDV ONE (21:34)
[2023-03-29] MEDS ORDERED: Ondansetron 4 MG/2 ML SDV ONE (21:34)
[2023-03-29] MEDS ORDERED: Ketorolac 30 MG/ML SDV ONE (21:34)
[2023-03-29] MEDS ORDERED: ceFAZolin 1 GM Vial ONE (21:34)
[2023-03-29] MEDS ORDERED: Oxytocin 10 Units/1 ML SDV ONE (21:34)
[2023-03-29] MEDS ORDERED: fentaNYL 100 MCG/2 ML SDV ONE (21:34)
[2023-03-29] MEDS ORDERED: Lidocaine 2% 5 ML SDV ONE (21:34)
[2023-03-29] MEDS ORDERED: Morphine PF 10 MG/10 ML SDV ONE (21:34)
[2023-03-29] MEDS ORDERED: Ropivacaine 0.5% 5 MG/ML 30 ML SDV ONE (21:35)
[2023-03-29] MEDS ORDERED: droPERidol 5 MG/2 ML SDV ONE (21:40)
[2023-03-29] MEDS ORDERED: Phenylephrine 1% 10 MG/ML SDV ONE (21:41)
[2023-03-29] MEDS ORDERED: Methylergonovine 0.2 MG/1 ML Amp ONE ×2 (21:57→22:11)
[2023-03-29] MEDS ORDERED: Tranexamic Acid 1,000 MG/10 ML Vial ONE ×2 (22:03→22:41)
[2023-03-29] MEDS ORDERED: Metoclopramide 10 MG/2 ML SDV ONE (22:19)
[2023-03-29] MEDS ORDERED: Phenylephrine HCl 0.5 MG/5 ML AMP ONE ×2 (22:26→22:41)
[2023-03-29] MEDS ORDERED: droPERidol 5 MG/2 ML SDV IVPUSH PRN (22:32)
[2023-03-29] MEDS ORDERED: Albuterol 0.083% 2.5 MG/3 ML Neb Soln NEB PRN (22:32)
[2023-03-29] MEDS ORDERED: diphenhydrAMINE 50 MG/ML SDV IVPUSH PRN ×2 (22:32→23:17)
[2023-03-29] MEDS ORDERED: Metoclopramide 10 MG/2 ML SDV IVPUSH PRN (22:32)
[2023-03-29] MEDS ORDERED: Morphine 2 MG/ML SYRINGE IVPUSH PRN (22:32)
[2023-03-29] MEDS ORDERED: ePHEDrine 50 MG/ML SDV IVPUSH PRN (22:32)
[2023-03-29] MEDS ORDERED: HYDROmorphone 1 MG/ML Syringe IVPUSH PRN (22:32)
[2023-03-29] MEDS ORDERED: fentaNYL 50 MCG/ML SDV IVPUSH PRN (22:32)
[2023-03-29] MEDS ORDERED: fentaNYL 100 MCG/2 ML SDV IVPUSH PRN (22:32)
[2023-03-29] MEDS ORDERED: Acetaminophen/oxyCODONE 325-5 MG Tab PO PRN ×2 (22:32→23:17)
[2023-03-29] MEDS ORDERED: Naloxone 0.4 MG/ML SDV IVPUSH PRN (22:32)
[2023-03-29] MEDS ORDERED: Misoprostol 200 MCG Tab RECTAL PRN (23:17)
[2023-03-29] MEDS ORDERED: Methylergonovine 0.2 MG/1 ML Amp IM PRN (23:17)
[2023-03-29] MEDS ORDERED: Oxytocin 10 Units/1 ML SDV IM PRN (23:17)
[2023-03-29] MEDS ORDERED: Lanolin 100% Cream 7 GM Tube TOP PRN (23:17)
[2023-03-29] MEDS ORDERED: Bisacodyl 10 MG Supp RECTAL PRN (23:17)
[2023-03-29 23:26] LABS: PH,UMBILICAL ARTERIAL 7.259 (7.18-7.38); PH,UMBILICAL VENOUS 7.277 (7.25-7.45)
[2023-03-30] MEDS ORDERED: Ketorolac 30 MG/ML SDV IVPUSH SCH (04:00)
[2023-03-30] MEDS ORDERED: Acetaminophen 1,000 MG in Premix Bag 1 BAG IV PRN (04:00)
[2023-03-30 06:34] LABS: HEMATOCRIT 30.5 % (36.0-46.0); HEMOGLOBIN 10.2 g/dL (12.0-16.0)
[2023-03-30] MEDS: Ketorolac 30 MG/ML SDV IVPUSH SCH ×3 (07:35→20:13)
[2023-03-30] MEDS ORDERED: CETIRIZINE 1 MG/ML PO SCH (09:00)
[2023-03-30] MEDS: Prenatal Multivitamin with Calcium/Folic Acid/Iron Tab PO SCH (09:20)
[2023-03-30] MEDS: Docusate Sodium 100 MG Cap PO SCH ×2 (09:20→20:14)
[2023-03-31] MEDS ORDERED: Ibuprofen 800 MG Tab PO PRN (02:00)
[2023-03-31] MEDS: Acetaminophen/oxyCODONE 325-5 MG Tab PO PRN ×3 (02:27→20:43)
[2023-03-31] MEDS: Ketorolac 30 MG/ML SDV IVPUSH SCH (02:28)
[2023-03-31] MEDS: Docusate Sodium 100 MG Cap PO SCH ×2 (09:03→20:43)
[2023-03-31] MEDS: Prenatal Multivitamin with Calcium/Folic Acid/Iron Tab PO SCH (09:03)
[2023-03-31] MEDS: Ibuprofen 800 MG Tab PO PRN (11:58)
[2023-04-01] MEDS: Acetaminophen/oxyCODONE 325-5 MG Tab PO PRN ×3 (01:44→13:31)
[2023-04-01] MEDS: Ibuprofen 800 MG Tab PO PRN ×2 (01:45→13:30)
[2023-04-01] MEDS: Docusate Sodium 100 MG Cap PO SCH (08:19)
[2023-04-01] MEDS: Prenatal Multivitamin with Calcium/Folic Acid/Iron Tab PO SCH (08:19)
== END 2023-04-01 14:28 | disposition home or self-care (01) | DRG 540 ==
LOC: MW.OB 17:46 → OBSVTOIN 03-29 21:58 → MW.OB 03-30 01:36
PROVIDERS: ADMIT Obstetrics & Gynecology; ATTEND Obstetrics & Gynecology
PROC: 10D00Z1 Extraction of Products of Conception, Low, Open Approach (ICD-10-PCS; principal; 2023-03-29)
PROC: 10907ZC Drainage of Amniotic Fluid, Therapeutic from Products of Conception, Via Natural or Artificial Opening (ICD-10-PCS; 2023-03-29)
PROC: 3E0P7VZ Introduction of Hormone into Female Reproductive, Via Natural or Artificial Opening (ICD-10-PCS; 2023-03-29)
PROC: 10H07YZ Insertion of Other Device into Products of Conception, Via Natural or Artificial Opening (ICD-10-PCS; 2023-03-29)
PROC: 3E0R3BZ Introduction of Anesthetic Agent into Spinal Canal, Percutaneous Approach (ICD-10-PCS; 2023-03-29)
PROC: 00HU33Z Insertion of Infusion Device into Spinal Canal, Percutaneous Approach (ICD-10-PCS; 2023-03-29)
DX: O13.4 Gestational [pregnancy-induced] hypertension without significant proteinuria, complicating childbirth (principal); D62 Acute posthemorrhagic anemia; O48.0 Post-term pregnancy; Z37.0 Single live birth; O62.1 Secondary uterine inertia; O90.81 Anemia of the puerperium; Z3A.40 40 weeks gestation of pregnancy; Z98.890 Other specified postprocedural states; Z90.89 Acquired absence of other organs
CPT/HCPCS: 36415; 51702; 59025; 80053; 82803; 84550; 85014; 85018; 85027; 86592; 86850; 86900; 86901; A9270-GY; J0131; J0456; J0690; J1100; J1790; J1885; J2210; J2274; J2300; J2370; J2405; J2590; J2765; J2795; J3010; J3490; J7050; J7120

== ENCOUNTER 2025-01-21 19:05 | Emergency (ER) | payer BC ==
[2025-01-21 19:46] LABS: BILIRUBIN,URINE NEGATIVE (NEGATIVE); GLUCOSE,URINE NEGATIVE (NEGATIVE); KETONES,URINE NEGATIVE (NEGATIVE); LEUKOCYTE ESTERASE,URINE NEGATIVE (NEGATIVE); NITRITE,URINE NEGATIVE (NEGATIVE); OCCULT BLOOD,URINE LARGE (NEGATIVE); PROTEIN,URINE 100 mg/dL (NEGATIVE); UROBILINOGEN,URINE 0.2 EU/dL (<2.0)
[2025-01-21 19:48] LABS: APPEARANCE,URINE BLOODY
[2025-01-21 19:49] LABS: COLOR,URINE RED
[2025-01-21 19:50] LABS: BACTERIA,URINE RARE (NEGATIVE); EPITHELIAL CELLS,URINE RARE (NONE-FEW); RBC,URINE TOO NUMEROUS TO CT (0-2/HPF); WBC,URINE 0-1 (0-5/HPF)
[2025-01-21 20:15] LABS: BASOPHILS ABSOLUTE AUTO 0.02 K/uL (0.00-0.20); BASOPHILS PERCENT AUTO 0.2 % (0.0-1.0); EOSINOPHILS ABSOLUTE AUTO 0.06 K/uL (0.00-0.45); EOSINOPHILS PERCENT AUTO 0.6 % (0.0-6.0); HEMATOCRIT 31.2 % (37.0-47.0); HEMOGLOBIN 10.9 g/dL (12.0-16.0); IMMATURE GRAN ABSOLUTE AUTO 0.04 K/uL (0.00-0.05); IMMATURE GRAN PERCENT AUTO 0.4 % (0.0-0.4); LYMPHOCYTES ABSOLUTE AUTO 2.43 K/uL (1.00-4.80); LYMPHOCYTES PERCENT AUTO 25.7 % (24.0-44.0); MEAN CORPUSCULAR HEMOGLOBIN 30.7 pg (28.0-32.0); MEAN CORPUSCULAR HGB CONC 34.9 g/dL (32.0-36.0); MEAN CORPUSCULAR VOLUME 87.9 fL (83.0-99.0); MEAN PLATELET VOLUME 10.7 fL (9.4-12.3); MONOCYTES ABSOLUTE AUTO 0.58 K/uL (0.00-0.80); MONOCYTES PERCENT AUTO 6.1 % (0.0-8.0); NEUTROPHILS ABSOLUTE AUTO 6.32 K/uL (1.80-7.70); PLATELET COUNT,PLT 240 K/uL (150-400); RED BLOOD CELL COUNT 3.55 M/uL (4.10-5.30); WHITE BLOOD CELL COUNT,WBC 9.45 K/uL (3.9-11.3)
[2025-01-21 20:21] LABS: A/G RATIO 1.5 (0.9-1.6); BILIRUBIN TOTAL 0.5 mg/dL (0.2-1.0); CALCIUM 8.5 mg/dL (8.5-10.1); CARBON DIOXIDE,CO2 26.7 mmol/L (21.0-32.0); CREATININE 0.9 mg/dL (0.6-1.0); EST CRCL DRUG DOSING (CG) 80.8 mL/min; PROTEIN TOTAL,TP 6.6 g/dL (6.4-8.2)
[2025-01-21] MEDS: Sodium Chloride 0.9% 1,000 ML IV ONE (20:26)
== END 2025-01-21 21:35 | disposition home or self-care (01) ==
LOC: MW.ED 19:05
DX: O03.6 Delayed or excessive hemorrhage following complete or unspecified spontaneous abortion (principal); Z88.8 Allergy status to other drugs, medicaments and biological substances; Z88.2 Allergy status to sulfonamides; Z79.899 Other long term (current) drug therapy
CPT/HCPCS: 36415; 76801; 80053; 81001; 84702; 85025; 86900; 86901; 96360; 99284; J7030; 99283